=== PATIENT | male | born 1970 | race Caucasian/White ===

== ENCOUNTER 2022-09-24 09:46 | Inpatient (IN) | payer SELFPAY ==
[~2022-09-24] VITALS: Ht 188 cm; Wt 103.9 kg
[2022-09-24] VITALS (467 sets, daily range): BP systolic 65–122; BP diastolic 45–77; PULSE 102–140; TEMP 96–103.8; O2SAT 55–100
--- NOTE | 2022-09-24 11:30 | NUR ---
RECIEVED REPORT FROM ELVIRA [phone]. PT SEEMED TO HAVE WORSENED THROUGHOUT THE NIGHT. PT LEFT VIA EMS, PER NURSE PT IS ALTERED, HARD TO AROUSE AND FALLS ASLEEP QUICKLY. PT HAD A 2LT BOLUS AT FACILITY, TEMP 100 , KUSSMAUL TYPE RESP WITH A DEPARTURE SUGAR OF 210. PT IS ON A LEVO GTT, UNKNOWN IF INSULIN WAS RESTARTED ENROUTE PER NURSE. PER ELVIRA, A WEEL AGO THE PATIENT WAS INDEPENDENT AND WAS STARTING TO FEEL POORLY WHEN HE WENT TO THE CLINIC ON 09/23, AND WAS THEN ADMITTED FOR DKA, GLU 350 AND GAP BETWEEN 13 AND 19. INSULIN GTT WAS STARTED ON 09/23 AND THEN SHUT OFF THROUGHOUT THE NIGHT AND ALL FLUIDS STOPPED. WHEN THE DAY SHIFT NURSE ARRIVED SHE FOUND MR. NEWSOME ALTERED, DIAPHORETIC AND PRESSURES 70S SYSTOLIC WHERE SHE GAVE 2 LT BOLUS. PT CONTINUES TO DECLINE AND PT IS NOT BEING TRANSFERED TO A HIGHER ECHELON OF CARE.
[2022-09-24 13:10] LABS: ARTERIAL BLD GAS O2 SATURATION 99.7 % (92-100); ARTERIAL BLD GAS TCO2 CT 11.8; ARTERIAL BLOOD GAS BASE EXCESS -17.4 (-2-2); ARTERIAL BLOOD GAS HCO3 10.8 meq/L (22-26); ARTERIAL BLOOD GAS PCO2 33.4 mmHg (35-45); ARTERIAL BLOOD GAS PO2 377.2 mmHg (80-100); ARTERIAL BLOOD GAS pH 7.13 (7.35-7.45)
[2022-09-24 13:55] LABS: INR 1.3 (0.8-3.0); PROTHROMBIN TIME 14.9 SECONDS (9.7-12.8)
[2022-09-24 13:59] LABS: HEMATOCRIT 42.7 % (42.0-52.0); HEMOGLOBIN 15.4 g/dl (13.5-18.0); MEAN CELL VOLUME 89 fl (80.0-100.0); MEAN CORPUSCULAR HEMOGLOBIN 32 pg (27-31); MEAN CORPUSCULAR HGB CONC 36 g/dl (33.0-37.0); MEAN PLATELET VOLUME 10.5 fl (7.4-10.4); PLATELET COUNT 281 K/mm3 (130-400); REDCELL DISTRIBUTION WIDTH-CV 14.7 % (11.5-14.5)
[2022-09-24 14:22] LABS: ALBUMIN 1.6 gm/dL (3.5-5.0); BILIRUBIN,TOTAL 0.7 mg/dL (0.2-1.2); CALCIUM 7.2 mg/dL (8.4-10.2); CREATININE, serum 3.02 mg/dL (0.72-1.25); TOTAL PROTEIN 5.3 gm/dL (6.2-8.1)
[2022-09-24 14:23] LABS: TROPONIN-I 0.206 ng/mL (0.00-0.033)
[2022-09-24 14:27] LABS: POTASSIUM 5.9 mmol/L (3.5-4.5)
--- NOTE | 2022-09-24 15:20 | NUR ---
PT HR WENT INTO THE 200s. Dr. Frederick called and VORB Adenosine 6 mg IV push. Pt heart rate slowed down and afib was noticed as rhythm. pt heart rate increaed again into the 200s and VORB Adenosine 12 mg IV push given. Pt heart rate slowed, but again went into the 200s when ordered synchronized cardioversion 200 J. PT was converted into a SR . Amiodarone 1 mg continious ordered. 1822- PT is now sustaining 120-140s AFIB- pt placed on Heparin.
[2022-09-24 15:40] LABS: ARTERIAL BLD GAS O2 SATURATION 99.2 % (92-100); ARTERIAL BLOOD GAS BASE EXCESS -16.6 (-2-2); ARTERIAL BLOOD GAS HCO3 9.2 meq/L (22-26); ARTERIAL BLOOD GAS pH 7.21 (7.35-7.45)
[2022-09-24 15:41] LABS: ARTERIAL BLOOD GAS PCO2 23.4 mmHg (35-45); ARTERIAL BLOOD GAS PO2 177.3 mmHg (80-100)
[2022-09-24 16:00] LABS: ALBUMIN 1.4 gm/dL (3.5-5.0); CALCIUM 6.1 mg/dL (8.4-10.2); CREATININE, serum 2.72 mg/dL (0.72-1.25); MAGNESIUM 2.7 mg/dL (1.6-2.6); PHOSPHOROUS 5.3 mg/dL (2.3-4.7); POTASSIUM 5.4 mmol/L (3.5-4.5)
--- NOTE | 2022-09-24 17:55 | NUR ---
UNABLE TO UPDATE PT MED LIST DUE TO DISCHARGE ORDER BEING PLACED FOR TRANSFER TO HIGHER LEVEL OF CARE.
--- NOTE | 2022-09-24 18:02 | NUR ---
PT ARRIVED VIA [facility] AT 1207. PT WAS AMS, KUSSMAUL BREATHING AND WOULD NOT RESPOND TO VOICE. PT RR WAS BETWEEN 40-60, HR 143, SATS 92-98% ON [address] LYONS ER PHYSICIAN NOTIFIED OF PT BEFORE ARRIVAL AND WAITING IN ROOM FOR INTUBATION WHEN PT ARRIVED. 1219- ETOMIDATE 20 MG IV PUSH 1219- ROCURONIUM 50 MG IV PUSH 1221- DR. LYONS INTUBATED VIA GLIDESCOPE- SEE PHYSICIAN NOTES FOR INTUBATION 1222- 7.5 ETT - CO2 COLOR CHANGED- 24 @ TEETH- BILAT DARLENE BREATH SOUNDS CONFIRMED BY THIS NURSE IN ALL LUNG BANKS 1227- FENTANYL STARTED- SEE GTT TITRATIONS 1229- LEVO STARTED- SEE GTT TITRATIONS 1240- ART LINE PLACED RIGHT RADIAL BY DR. LYONS- SEE PHYSICIAN NOTES 1250- RIGHT IJ TRIPLE LUMEN PLACED BY DR. MCGRATH- SEE PHYSICIAN NOTES 1305- VASO INITIATED PER ORDER- NO TITRATIONS 1315- 16 FR GASTON CATH PLACED BY AVELINO CELERY PACKER- URINE SENT TO LAB 1320- NG 16 FR SALEMSUMP RT NARE- SECURED WITH TAPE PLACED BY THIS NURSE- PLACED ON LIS WITH GREEN GASTRIC RETURN ALL LINES AND TUBES CONFIRMED BY XRAY
[2022-09-24 18:40] LABS: GASTROCCULT POSITIVE; pH GASTRIC CONTENTS 1
[2022-09-24 19:04] LABS: ARTERIAL BLD GAS O2 SATURATION 96.4 % (92-100); ARTERIAL BLD GAS TCO2 CT 13.4; ARTERIAL BLOOD GAS BASE EXCESS -13.2 (-2-2); ARTERIAL BLOOD GAS HCO3 12.5 meq/L (22-26); ARTERIAL BLOOD GAS PO2 91.6 mmHg (80-100); ARTERIAL BLOOD GAS pH 7.25 (7.35-7.45)
--- NOTE | 2022-09-24 20:55 | NUR ---
PATIENT BEING TRANSPORTED TO [facility] BED [facility]/ REPORT GIVEN TO MOTEL FRONT DESK CLERK DESTINEY AND FLIGHT RN. MOVE TO AMBULANCE STRETCHER WITH EASE/ THEN TO HELICOPTER/ NURSE REPORT GIVEN TO TYRESE AGUDELO FROM [facility]
--- NOTE | 2022-09-24 21:26 | NUR ---
PT IN ROOM AT THIS TIME. SPUTUM SAMPLE VIA ETT SUCTION OBTAINED. ART LINE ABG OBTAINED. NO DISTRESS NOTED. VENT WHEELS LOCKED. RN IN ROOM. HOB SLIGHTLY ELEVATED. VENT PLUGGED INTO RED OUTLETS. AMBUBAG AT HEAD OF BED
--- NOTE | 2022-09-24 21:30 | NUR ---
FLIGHT TEAM IS HERE TO TRANSPORT PT. MARKUS AGUDELO IN ROOM. OTHER NURSES AND HOUSE SUP ASSISTING WITH PT AND FLIGHT TEAM. NO COMPLICATIONS.
--- NOTE | 2022-09-24 21:33 | NUR ---
CALLED AND SPOKE WITH AN [facility] DOCTOR AT 2030 TO REPORT RESULTS OF ABG AND ASK IF HE WOULD LIKE ANY SETTINGS CHANGED PRIOR TO FLIGHT TEAM LEAVING. DOCTOR STATED TO CHANGE RATE TO 22 AND LOWER VT TO 500. THIS [employer] HOTEL RUNNER VERBALIZED UNDERSTANDING AND REPEATED CHANGES TO DOCTOR. RN AND FLIGHT TEAM NOTIFIED OF CHANGES.
--- NOTE | 2022-09-25 05:08 | NUR ---
Lab reported patient blood culture positive for staph aureus. Patient transferred to [facility]. Spoke with MAGNUS Hoffman currently taking care of patient. Reported results to MAGNUS Hoffman
== END 2022-09-24 20:55 | disposition short-term general hospital (02) | DRG 871 ==
LOC: IMCU 09:46 → SDCO 12:10 → ICU 12:10 → SDCO 12:22 → ICU 12:22 → SDCO 12:23 → ICU 12:23 → EDSTATUS 12:46 → ICU 20:55
PROVIDERS: Internal Medicine Nephrology; Internal Medicine Pulmonary Disease; ADMIT Internal Medicine
PROC: 0BH17EZ Insertion of Endotracheal Airway into Trachea, Via Natural or Artificial Opening (ICD-10-PCS; principal; 2022-09-24)
PROC: 03HY32Z Insertion of Monitoring Device into Upper Artery, Percutaneous Approach (ICD-10-PCS; 2022-09-24)
PROC: 4A133B1 Monitoring of Arterial Pressure, Peripheral, Percutaneous Approach (ICD-10-PCS; 2022-09-24)
PROC: 4A133J1 Monitoring of Arterial Pulse, Peripheral, Percutaneous Approach (ICD-10-PCS; 2022-09-24)
PROC: 5A1935Z Respiratory Ventilation, Less than 24 Consecutive Hours (ICD-10-PCS; 2022-09-24)
PROC: 02HV33Z Insertion of Infusion Device into Superior Vena Cava, Percutaneous Approach (ICD-10-PCS; 2022-09-24)
PROC: 5A1221J Performance of Cardiac Output, Continuous, Automated (ICD-10-PCS; 2022-09-24)
DX: A41.9 Sepsis, unspecified organism (principal); E11.10 Type 2 diabetes mellitus with ketoacidosis without coma; R65.21 Severe sepsis with septic shock; J96.01 Acute respiratory failure with hypoxia; G93.41 Metabolic encephalopathy; R57.1 Hypovolemic shock; M62.82 Rhabdomyolysis; N17.9 Acute kidney failure, unspecified; E87.1 Hypo-osmolality and hyponatremia; I47.1 Supraventricular tachycardia; I95.9 Hypotension, unspecified; I10 Essential (primary) hypertension; I48.91 Unspecified atrial fibrillation; E83.41 Hypermagnesemia; E78.5 Hyperlipidemia, unspecified; F32.A Depression, unspecified; T50.995A Adverse effect of other drugs, medicaments and biological substances, initial encounter; E87.5 Hyperkalemia; E88.09 Other disorders of plasma-protein metabolism, not elsewhere classified; Z79.84 Long term (current) use of oral hypoglycemic drugs
CPT/HCPCS: A4314; C1751; J0153; J0282; J1644; J1815; J2543; J2704; J3010; J3370; J7030; J7050; J7060; J7120